=== PATIENT | female | born 1950 | race African-American/Black ===

== ENCOUNTER → 2016-09-08 | Outpatient (CLI) | payer MEDICARE | LOC: OD 07:45 | PROVIDERS: ATTEND Physician Assistant Medical | DX: I50.9 Heart failure, unspecified (principal); R06.02 Shortness of breath | CPT/HCPCS: 71020 ==

== ENCOUNTER → 2016-09-19 | Outpatient (CLI) | payer MEDICARE ==
--- NOTE | 2016-09-19 14:08 | RADIOLOGY REPORT (SQ) ---
EXAM DESCRIPTION: CHEST PA/LATERAL COMPLETED DATE/TIME: 09/19/2016 1:44 pm REASON FOR STUDY: HEART FAILURE, UNSPECIFIED COMPARISON: 09/08/2016 EXAM PARAMETERS: NUMBER OF VIEWS: two views TECHNIQUE: Digital Frontal and Lateral radiographic views of the chest acquired. RADIATION DOSE: NA LIMITATIONS: none FINDINGS: LUNGS AND PLEURA: Chronic interstitial changes are suggested, right more than left. There appears to be some scarring in the right upper lobe. Pole localized infiltrate is present. There i s mild apical pleural thickening. MEDIASTINUM AND HILAR STRUCTURES: No masses or contour abnormalities. HEART AND VASCULAR STRUCTURES: Cardiomegaly with no evidence of failure. BONES: No acute findings. HARDWARE: None in the chest. OTHER: No other significant finding. IMPRESSION: Cardiomegaly with chronic lung changes. TECHNICAL DOCUMENTATION: JOB ID: [id number] [employer]- All Rights Reserved
== END ==
LOC: OD 13:30
PROVIDERS: ATTEND Physician Assistant Medical
DX: I50.9 Heart failure, unspecified (principal)
CPT/HCPCS: 71020

== ENCOUNTER 2017-01-09 05:19 | Day surgery (SDC) | payer MEDICARE ==
[2017-01-02 10:24] LABS: HEMATOCRIT 30.7 % (36.0-47.0); HEMOGLOBIN 10.2 g/dL (12.0-15.5); HGB HCT DIFFERENCE -0.1; MEAN CORPUSCULAR HGB CONC 33.3 g/dL (32.0-36.0); MEAN CORPUSCULAR VOLUME 90 fl (80-97); RED BLOOD COUNT 3.41 10^6/uL (3.72-5.28); RED CELL DISTRIBUTION WIDTH 14.8 % (11.5-14.0); WHITE BLOOD COUNT 3.7 10^3/uL (4.0-10.5)
[2017-01-02 10:53] LABS: ANION GAP 14 (5-19); BLOOD UREA NITROGEN 78 mg/dL (7-20); CALCIUM 9.5 mg/dL (8.4-10.2); CARBON DIOXIDE 20 mmol/L (22-30); CHLORIDE 109 mmol/L (98-107); CREATININE RESULT 4.43 mg/dL (0.52-1.25); GLUCOSE 91 mg/dL (75-110); POTASSIUM 4.1 mmol/L (3.6-5.0); SODIUM 143.4 mmol/L (137-145)
--- NOTE | 2017-01-02 12:54 | EKG REPORT ---
SEVERITY:- DEFECTIVE ECG - SINUS BRADYCARDIA FIRST DEGREE AV BLOCK NONSPECIFIC INTRAVENTRICULAR CONDUCTION DELAY : Confirmed by: Rohit Meza MD 02-Jan-2017 12:54:24
[~2017-01-09 05:19] MED LIST: LACTATED RINGERS 1000 ML IV PRN; LIDOCAINE 0.5% INJ-PF (5 MG/ML) 50 ML SDV SUBCUT PRN
[2017-01-09] MEDS ORDERED: CEFAZOLIN 1 GM/D5W RTU 1 GM/50 ML RTUPB IV ONE (05:20)
[2017-01-09] MEDS ORDERED: NITROGLYCERIN/D5W 50 MG/250 ML RTUINJ IV ONE (06:31)
[2017-01-09] MEDS ORDERED: KETAMINE HCL INJ 500 MG/10 ML VIAL ONE (06:34)
[2017-01-09] MEDS ORDERED: FENTANYL CITRATE INJ/PF 100 MCG/2 ML AMPUL ONE (06:35)
[2017-01-09] MEDS ORDERED: EPHEDRINE SULFATE INJ 50 MG/1 ML AMPULE ONE (06:35)
[2017-01-09] MEDS ORDERED: MIDAZOLAM 2 MG/2 ML INJ ONE (06:35)
[2017-01-09] MEDS ORDERED: PROPOFOL INJ 200 MG/20 ML VIAL IV ONE (06:36)
[2017-01-09] MEDS ORDERED: DEXMEDETOMIDINE INJ 80 MCG/20 ML VIAL IV ONE (06:36)
[2017-01-09] MEDS ORDERED: LIDOCAINE 1% INJ-PF (10 MG/ML) 30 ML SDV ONE (06:48)
[2017-01-09] MEDS ORDERED: BUPIVACAINE HCL 0.25 % INJ/PF (2.5 MG/1 ML) 30 ML VIAL ONE (06:48)
[2017-01-09] MEDS ORDERED: HEPARIN SOD (PORCINE) 1,000 UNIT/ML 10 ML VIAL ONE (06:48)
[2017-01-09] MEDS ORDERED: LIDOCAINE 0.5% INJ-PF (5 MG/ML) 50 ML SDV ONE (06:49)
[2017-01-09] MEDS ORDERED: BACITRACIN INJ 50,000 UNIT VIAL ONE (06:49)
--- NOTE | 2017-01-09 07:03 | EKG REPORT ---
SEVERITY:- ABNORMAL ECG - SINUS RHYTHM FIRST DEGREE AV BLOCK CONSIDER ANTERIOR INFARCT BORDERLINE T ABNORMALITIES, DIFFUSE LEADS : Confirmed by: Estefany Reagan 09-Jan-2017 07:02:55
[2017-01-09] MEDS ORDERED: FENTANYL CITRATE INJ/PF 100 MCG/2 ML AMPUL IV PRN ×3 (08:20)
[2017-01-09] MEDS ORDERED: MEPERIDINE HCL/PF INJ 25 MG/1 ML DISP.SYRIN IV PRN (08:20)
[2017-01-09] MEDS ORDERED: DIPHENHYDRAMINE HCL 50 MG/ML VIAL IV PRN (08:20)
[2017-01-09] MEDS ORDERED: PROMETHAZINE HCL INJ 25 MG/1 ML VIAL IV PRN ×2 (08:20)
[2017-01-09] MEDS ORDERED: MORPHINE SULFATE 10 MG/ML INJ IV PRN (08:20)
[2017-01-09] MEDS ORDERED: OXYCODONE-ACETAMINOPHEN 5-325 MG TABLET PO PRN ×2 (08:20)
--- NOTE | 2017-01-09 09:16 | PDOC DISCHARGE SUMMARY ---
Discharge Summary (SDC) - Discharge Final Diagnosis: #1 chronic kidney disease stage IV 2. History of congestive heart failure 3. History of myocardial infarction. 5. History of stroke. 6. Hypertension. Date of Surgery: 01/09/17 Discharge Date: 01/09/17 Condition: Fair Treatment or Instructions: Discharge home [after recovery per ASU criteria]. Diet , [renal],as tolerated, when fully awake advance as tolerated. Activities within moderation encouraged. Follow up in my office by appointment in about [1 week]. Call for appointment. Leave wounds [covered], [keep clean and dry, until office visit in 1 week]. Hold of on school/work [until evaluation in office]. May shower [in 48 hrs], [try to keep operated area as dry as possible]. Prescriptions: Oxycodone HCl/Acetaminophen [Percocet 5-325 mg Tablet] 1 tab PO ASDIR PRN #15 tab PRN Reason: Referrals: LENKA CARY PA-C [Primary Care Provider] - Discharge Diet: Other (Comments) - Renal Respiratory Treatments at Home: Deep Breathing/Coughing Discharge Activity: Activity As Tolerated Report the Following to Your Physician Immediately: Shortness of Breath, Unusual Bleeding
--- NOTE | 2017-01-09 09:23 | Operative Report ---
Operative Report DATE OF SURGERY: 01/09/17 PREOPERATIVE DIAGNOSIS: #1 chronic kidney disease stage IV. 2. History of congestive heart failure. 3. History of myocardial infarction. 5. History of stroke. 6. Hypertension. POSTOPERATIVE DIAGNOSIS: #1 chronic kidney disease stage IV. 2. History of congestive heart failure. 3. History of myocardial infarction. 5. History of stroke. 6. Hypertension. OPERATION: First stage insertion of transposed basilic vein fistula, left arm. SURGEON: CECY PRITCHARD WIRE STRAIGHTENER: JOANA MANNING ANESTHESIA: LMAC TISSUE REMOVED OR ALTERED: Not applicable COMPLICATIONS: None ESTIMATED BLOOD LOSS: 10 mL INTRAOPERATIVE FINDINGS: Of a basilic vein of adequate caliber, accepting of a 4 mm coronary dilator. In spasm initially. Spasm overcome with intravenous nitroglycerin locally. Satisfactory and white anastomosis done with a good thrill appreciable. Slight whistle appreciated on Doppler. Satisfactory postprocedure Doppler analysis with a slurred multiphasic waveform, on inflow brachial artery, multiphasic and distal brachial artery and a continuous machine murmur no murmur in the vein about 3 cm from the anastomosis. Second stage anticipated in 4-6 weeks. PROCEDURE: Operative Report PROCEDURE: After reviewing the procedure with the patient, [she] was taken to the operating room. The patient was sedated and the [left upper extremity] prepared with chlorhexidine and draped out with sterile linen. After the "" universal timeout", in which it was verified that the patient [received IV antibiotics] the procedure commenced. The sterilely sheathed ultrasound probe was used to evaluate the left upper venous and arterial systems, pertinent to the previously done vein mapping. Local anesthesia was infiltrated and a longitudinal incision made over the lower arm near the antecubital fossa. Dissection proceeded through the subcutaneous tissues down to the basilic vein. The vein was dissected out proximally and distally for about 4 cm. Likewise major branches. A second incision was made medially over the brachial artery. The brachial artery dissected out for a distance of about 1.5 cm. Rubber loops were placed on either end. The patient was given 2500 units of heparin intravenously. Coronary dilators were accepted [up to 4 mm]. The artery was controlled proximally and distally with rubber loops. An arteriotomy approximately [1.5 cm ] in length was made, the artery was irrigated proximally and distally with heparinized solution. The transected vein was now spatulated, using the fishmouth technique, it was then transposed into the lateral incision anastomosed end to end to side into the brachial artery. This was done using a continuous suture of 6-0 Prolene. Controls of the fistula were now released and it was analyzed using a Doppler probe. Hemostasis was secured once optimal function was assured, the wound was irrigated with antibiotic containing solution and closed. The redundant vein was now transposed into the subcutaneous tissue laterally, to facilitate second stage. Closure was done using interrupted 3-0 PDS for the subcutaneous tissues. The skin was closed using a continuous subcutaneous suture of 4-0 Monocryl which was reinforced with Steri-Strips over benzoin. I then left the operative field and returned with a stethoscope covered with a sterile Tegaderm dressing. This allowed external auscultation of the fistula. Auscultation was [satisfactory]. The procedure was concluded by applying a Kerlix dressing over the surgical site. DICTATING PHYSICIAN: CECY BUSTAMANTE M.D.
[2017-01-09] MEDS ORDERED: OXYCODONE-ACETAMINOPHEN 5-325 MG TABLET ONE (10:30)
[2017-01-09 11:24] VITALS: BP 145/70
[2017-01-09] MEDS ORDERED: LIDOCAINE 2% INJ-PF (20 MG/ML) 10 ML AMPUL ONE (13:25)
[2017-01-09] MEDS ORDERED: PHENYLEPHRINE HCL INJ/PF 10 MG/1 ML SDV ONE (13:25)
[2017-01-09] MEDS ORDERED: ONDANSETRON HCL INJ/PF 4 MG/2 ML SDV ONE (13:25)
[2017-01-09] MEDS ORDERED: DEXAMETHASONE SOD PHOSPHATE INJ 4 MG/1 ML VIAL ONE (13:25)
== END 2017-01-09 11:30 | disposition home or self-care (01) ==
LOC: OROUT 05:19
PROVIDERS: ATTEND Surgery
PROC: 05SC0ZZ Reposition Left Basilic Vein, Open Approach (ICD-10-PCS; principal; 2017-01-09 07:30)
DX: I13.2 Hypertensive heart and chronic kidney disease with heart failure and with stage 5 chronic kidney disease, or end stage renal disease (principal); N18.5 Chronic kidney disease, stage 5; I50.9 Heart failure, unspecified; Z86.73 Personal history of transient ischemic attack (TIA), and cerebral infarction without residual deficits; I25.2 Old myocardial infarction; D64.9 Anemia, unspecified; Z87.891 Personal history of nicotine dependence; Z79.899 Other long term (current) drug therapy
CPT/HCPCS: 93005 ×2; 36415 ×2; 84132; 85027; 80048; 93010 ×2; 36819; J2250; J3490 ×7; J0690; J1100; J3010; J1644; A9270; J2370; J2405; J2704; 1844

== ENCOUNTER 2017-02-13 07:21 | Day surgery (SDC) | payer MEDICARE ==
[2017-02-08 11:00] LABS: HEMOGLOBIN 8.6 g/dL (12.0-15.5); HGB HCT DIFFERENCE -0.2; MEAN CORPUSCULAR HGB CONC 33.2 g/dL (32.0-36.0); MEAN CORPUSCULAR VOLUME 90 fl (80-97); RED BLOOD COUNT 2.88 10^6/uL (3.72-5.28); RED CELL DISTRIBUTION WIDTH 13.9 % (11.5-14.0); WHITE BLOOD COUNT 3.2 10^3/uL (4.0-10.5)
[2017-02-08 11:30] LABS: ANION GAP 17 (5-19); BLOOD UREA NITROGEN 88 mg/dL (7-20); CALCIUM 9.3 mg/dL (8.4-10.2); CARBON DIOXIDE 17 mmol/L (22-30); CHLORIDE 112 mmol/L (98-107); CREATININE RESULT 4.73 mg/dL (0.52-1.25); GLUCOSE 91 mg/dL (75-110); POTASSIUM 4.1 mmol/L (3.6-5.0); SODIUM 146.3 mmol/L (137-145)
--- NOTE | 2017-02-08 19:58 | EKG REPORT ---
SEVERITY:- ABNORMAL ECG - SINUS RHYTHM MULTIPLE VENTRICULAR PREMATURE COMPLEXES FIRST DEGREE AV BLOCK BORDERLINE T WAVE ABNORMALITIES : Confirmed by: Rohit Meza MD 08-Feb-2017 19:57:54
[~2017-02-13 07:21] MED LIST changes: +CEFAZOLIN 1 GM/D5W RTU 1 GM/50 ML RTUPB IV PRN; -LACTATED RINGERS 1000 ML IV PRN; +NORMAL SALINE 1000 ML (RENAL PATIENTS) IV PRN
[2017-02-13] MEDS ORDERED: LIDOCAINE 1% INJ-PF (10 MG/ML) 30 ML SDV ONE (07:58)
[2017-02-13] MEDS ORDERED: BUPIVACAINE HCL 0.25 % INJ/PF (2.5 MG/1 ML) 30 ML VIAL ONE ×2 (07:59→13:35)
[2017-02-13] MEDS ORDERED: HEPARIN SOD (PORCINE) 1,000 UNIT/ML 1 ML VIAL ONE (07:59)
[2017-02-13] MEDS ORDERED: LIDOCAINE 0.5% INJ-PF (5 MG/ML) 50 ML SDV ONE ×2 (07:59→13:35)
[2017-02-13] MEDS ORDERED: BACITRACIN INJ 50,000 UNIT VIAL ONE (07:59)
[2017-02-13] MEDS ORDERED: HEPARIN SOD (PORCINE) 1,000 UNIT/ML 10 ML VIAL ONE (08:15)
[2017-02-13] MEDS ORDERED: NITROGLYCERIN/D5W 0 MG/0 ML RTUINJ IV ONE (08:22)
[2017-02-13] MEDS ORDERED: PROPOFOL INJ 200 MG/20 ML VIAL IV ONE (10:59)
[2017-02-13] MEDS ORDERED: FENTANYL CITRATE INJ/PF 100 MCG/2 ML AMPUL ONE (10:59)
[2017-02-13] MEDS ORDERED: MIDAZOLAM 2 MG/2 ML INJ ONE (10:59)
[2017-02-13] MEDS ORDERED: DIPHENHYDRAMINE HCL 50 MG/ML VIAL IV PRN (11:48)
[2017-02-13] MEDS ORDERED: PROMETHAZINE HCL INJ 25 MG/1 ML VIAL IV PRN (11:48)
[2017-02-13] MEDS ORDERED: FENTANYL CITRATE INJ/PF 100 MCG/2 ML AMPUL IV PRN ×3 (11:48)
[2017-02-13] MEDS ORDERED: KETAMINE HCL INJ 500 MG/10 ML VIAL ONE (13:00)
[2017-02-13] MEDS ORDERED: DEXMEDETOMIDINE INJ 80 MCG/20 ML VIAL IV ONE (13:01)
--- NOTE | 2017-02-13 13:43 | PDOC DISCHARGE SUMMARY ---
Discharge Summary (SDC) - Discharge Final Diagnosis: #1 chronic kidney disease stage III. 2. History of stroke. 3. History of myocardial infarction. 4. Anemia. Date of Surgery: 02/13/17 Discharge Date: 02/13/17 Condition: Fair Treatment or Instructions: Discharge home [after recovery per ASU criteria]. Diet , [renal],as tolerated, when fully awake advance as tolerated. Activities within moderation encouraged. Follow up in my office by appointment in about [1 week]. Call for appointment. Leave wounds [covered], [keep clean and dry, until office visit in 1 week]. Empty Dre-Purcell drain as needed. Treating patient and his use. Hold of on school/work [until evaluation in office]. Meds per med rec also Percocet. May shower [in 48 hrs], [try to keep operated area as dry as possible]. Prescriptions: Oxycodone HCl/Acetaminophen [Percocet 5-325 mg Tablet] 1 tab PO ASDIR PRN #15 tab PRN Reason: Referrals: JOHANNY ANGUIANO MD [Primary Care Provider] - Respiratory Treatments at Home: Deep Breathing/Coughing Discharge Activity: Activity As Tolerated Report the Following to Your Physician Immediately: Shortness of Breath, Unusual Bleeding
--- NOTE | 2017-02-13 15:02 | Operative Report ---
Operative Report DATE OF SURGERY: 02/13/17 PREOPERATIVE DIAGNOSIS: 1. Chronic kidney disease history stage III. 2. History of stroke. 3. History of myocardial infarction. 4. Anemia. POSTOPERATIVE DIAGNOSIS: 1. Chronic kidney disease history stage III. 2. History of stroke. 3. History of myocardial infarction. 4. Anemia. OPERATION: Second stage left transposed basilic vein fistula insertion. SURGEON: CECY PRITCHARD SALESFORCE TRAINER: JOANA MANNING ANESTHESIA: LMAC TISSUE REMOVED OR ALTERED: Not applicable. COMPLICATIONS: None ESTIMATED BLOOD LOSS: 50 mL. INTRAOPERATIVE FINDINGS: A robustly developed basilic vein estimated to be over 6 mm in diameter. Nicely transposed into a tunnel. I believe about 15 cm should be available ultimately for use. Good Doppler signal at the end of the procedure. PROCEDURE: Operative Report PROCEDURE: After reviewing the procedure with the patient, she was taken to the operating room. The patient was sedated and the [left upper extremity] prepared with chlorhexidine and draped out with sterile linen. After the "" universal timeout", in which it was verified that the patient [received IV antibiotics] the procedure commenced. The sterilely sheathed ultrasound probe was used to evaluate the size and topographic location of the existing basilic vein fistula. This was transcribed topographical using a marking pen. Local anesthesia was infiltrated and a longitudinal incision started just above the elbow and dissection proceeded down to the fistula. Sequential infiltration of local anesthesia, incision and dissection of the vein proceeded up to the axillary fold. The basilic vein was now dissected away from its branches which were either clipped and/or ligated and divided. In this way the basilic vein was freed up for its entire visible length. Its length was now measured with a dry umbilical tape which was used to transpose a tunnel onto the skin anteriorly and laterally. With this marked in ink, local anesthesia was infiltrated in the skin and subcutaneous tissue of the tunnel. A [place] tunneler was now used to dissect a tunnel in the immediate subcutaneous plane in the area of fistula transposition. Several 3-0 PDS sutures were now placed in the subcutaneous tissues and placed on clamps. These were used for traction laterally. The subcutaneous tissues were now divided down to the tunneler. The tunneler was now removed. The vein was now placed within the tunnel which was reconstituted with interrupted sutures of 3-0 PDS. Great care was taken to avoid compressing the fistula. A 15 [place] [address] drain was now inserted through an inferiorly placed incision after obtaining local anesthesia. The drain was tailored to the lower one third of the wound. It was kept away from the vein, the wound was now closed using interrupted 3-0 PDS in the subcutaneous tissues. The skin was closed with a continuous subcutaneous suture of 4-0 Monocryl. Steri-Strips were applied over benzoin and then Telfa and then a Kerlix wrap. The critical care physician assistant provided retraction, thus facilitating the operative view. Controlled bleeding. The critical care physician assistant also followed the suturing, thus facilitating accurate suture placement. Sutured skin and applied dressings. The procedure was concluded. Copies dictated operative report to Dr. Cecy Negrete MD thank you. DICTATING PHYSICIAN: CECY NEGRETE M.D.
[2017-02-13] MEDS ORDERED: OXYCODONE-ACETAMINOPHEN 5-325 MG TABLET ONE (15:53)
[2017-02-13] MEDS ORDERED: ONDANSETRON HCL INJ/PF 4 MG/2 ML SDV ONE (16:37)
[2017-02-13] MEDS ORDERED: LIDOCAINE 2% INJ-PF (20 MG/ML) 10 ML AMPUL ONE (16:37)
[2017-02-13] MEDS ORDERED: DEXAMETHASONE SOD PHOSPHATE INJ 4 MG/1 ML VIAL ONE (16:37)
[2017-02-13] MEDS ORDERED: OXYCODONE-ACETAMINOPHEN 5-325 MG TABLET PO ONE (17:00)
[2017-02-13 18:51] VITALS: BP 169/70
== END 2017-02-13 17:35 | disposition home or self-care (01) ==
LOC: OROUT 07:21
PROVIDERS: ATTEND Surgery
PROC: 05SC0ZZ Reposition Left Basilic Vein, Open Approach (ICD-10-PCS; principal; 2017-02-13 09:30)
DX: T82.858A Stenosis of other vascular prosthetic devices, implants and grafts, initial encounter (principal); D63.1 Anemia in chronic kidney disease; Y83.2 Surgical operation with anastomosis, bypass or graft as the cause of abnormal reaction of the patient, or of later complication, without mention of misadventure at the time of the procedure; I12.0 Hypertensive chronic kidney disease with stage 5 chronic kidney disease or end stage renal disease; N18.6 End stage renal disease; Z86.79 Personal history of other diseases of the circulatory system; I25.2 Old myocardial infarction; Z86.73 Personal history of transient ischemic attack (TIA), and cerebral infarction without residual deficits; Z87.891 Personal history of nicotine dependence; Z79.899 Other long term (current) drug therapy; Z99.2 Dependence on renal dialysis
CPT/HCPCS: 36821; 93005; 36415 ×2; 84132; 85027; 80048; 93010; J2250; J3490 ×6; J0690; J1100; J3010; J1644; A9270; J2405; J2704; 1844

== ENCOUNTER 2017-04-27 09:08 | Emergency (ER) | payer MEDICARE ==
[2017-04-27] MEDS ORDERED: IPRATROPIUM/ALBUTEROL 0.5-2.5 MG/3 ML AMPUL NEB ONE ×3 (09:23→09:29)
[2017-04-27] MEDS ORDERED: METHYLPREDNISOLONE INJ 125 MG/2 ML SDV ONE (09:24)
[2017-04-27] MEDS ORDERED: METHYLPREDNISOLONE INJ 125 MG/2 ML SDV IV ONE (09:29)
[2017-04-27] MEDS ORDERED: ONDANSETRON HCL INJ/PF 4 MG/2 ML SDV IV ONE (09:29)
[2017-04-27 10:01] LABS: HEMATOCRIT 26.8 % (36.0-47.0); HEMOGLOBIN 8.6 g/dL (12.0-15.5); MEAN CORPUSCULAR HEMOGLOBIN 29.4 pg (27.0-33.4); MEAN CORPUSCULAR HGB CONC 32.1 g/dL (32.0-36.0); MEAN CORPUSCULAR VOLUME 92 fl (80-97); PLATELET COUNT 150 10^3/uL (150-450); RED BLOOD COUNT 2.92 10^6/uL (3.72-5.28); RED CELL DISTRIBUTION WIDTH 15.4 % (11.5-14.0); WHITE BLOOD COUNT 6.4 10^3/uL (4.0-10.5)
[2017-04-27 10:06] LABS: VENOUS BLOOD BASE EXCESS -7.3 mmol/L; VENOUS BLOOD HCO3 20.8 mmol/L (20-32); VENOUS BLOOD PCO2 56.9 mmHg (35-63)
[2017-04-27 10:09] LABS: VENOUS BLOOD PH 7.18 (7.30-7.42)
[2017-04-27 10:14] LABS: INTERNATIONAL RATION (INR) 1.05; PROTHROMBIN TIME 14.4 SEC (11.4-15.4)
--- NOTE | 2017-04-27 10:14 | RADIOLOGY REPORT (SQ) ---
EXAM DESCRIPTION: CHEST SINGLE VIEW COMPLETED DATE/TIME: 04/27/2017 9:45 am REASON FOR STUDY: SOB COMPARISON: Two-view chest 09/19/2016, 09/08/2016 EXAM PARAMETERS: NUMBER OF VIEWS: One view. TECHNIQUE: Single frontal radiographic view of the chest acquired. RADIATION DOSE: NA LIMITATIONS: None. FINDINGS: LUNGS AND PLEURA: Fluid overload or congestive failure, with pulmonary vascular congestion , mild alveolar and interstitial edema. Chronic appearing pleural thickening or pleural calcification at the apices and periphery of the righ t upper lobe. Trace bilateral pleural effusions. No pneumothorax. MEDIASTINUM AND HILAR STRUCTURES: No masses. Contour normal. HEART AND VASCULAR STRUCTURES: Massive cardiomegaly BONES: No acute findings. HARDWARE: None in the chest. OTHER: No other significant finding. IMPRESSION: Fluid overload or congestive failure with alveolar and interstitial edema, and trace barbi ateral pleural effusions. Marked cardiomegaly TECHNICAL DOCUMENTATION: JOB ID: [id number] [employer]- All Rights Reserved
[2017-04-27 10:18] LABS: ABSOLUTE LYMPHOCYTES# (MANUAL) 0.5 10^3/uL (0.5-4.7); ABSOLUTE MONOCYTES # (MANUAL) 0.4 10^3/uL (0.1-1.4); ABSOLUTE NEUTROPHILS# (MANUAL) 5.3 10^3/uL (1.7-8.2); BASOPHILS % (MANUAL) 2 % (0-2); EOSINOPHILS % (MANUAL) 0 % (0-6); LYMPHOCYTES % (MANUAL) 8 % (13-45); MONOCYTES % (MANUAL) 7 % (3-13); SEGMENTED NEUTROPHILS % (MAN) 83 % (42-78); TOTAL CELLS COUNTED 100
[2017-04-27] MEDS ORDERED: FUROSEMIDE INJ/PF 40 MG/4 ML SDV IV ONE ×3 (10:18→14:45)
[2017-04-27 10:19] LABS: OVALOCYTES SLIGHT; PLATELET COMMENT ADEQUATE; POIKILOCYTOSIS SLIGHT
[2017-04-27 10:21] LABS: ALANINE AMINOTRANSFERASE 45 U/L (9-52); ALBUMIN 4.2 g/dL (3.5-5.0); ALKALINE PHOSPHATASE 77 U/L (38-126); ANION GAP 16 (5-19); ASPARTATE AMINO TRANSFERASE 60 U/L (14-36); BILIRUBIN,DIRECT 0.4 mg/dL (0.0-0.4); BILIRUBIN,TOTAL 0.4 mg/dL (0.2-1.3); BLOOD UREA NITROGEN 78 mg/dL (7-20); CARBON DIOXIDE 20 mmol/L (22-30); CHLORIDE 110 mmol/L (98-107); GLUCOSE 108 mg/dL (75-110); POTASSIUM 4.5 mmol/L (3.6-5.0); SODIUM 145.9 mmol/L (137-145); TOTAL PROTEIN 7.6 g/dL (6.3-8.2)
--- NOTE | 2017-04-27 10:26 | ER Document Report ---
ED Respiratory Problem - General Chief Complaint: Nausea/Vomiting/Diarrhea Stated Complaint: COLD,VOMITING,DIARRHEA Time Seen by Provider: 04/27/17 09:28 Mode of Arrival: Wheelchair Information source: Patient, Relative Cannot obtain history due to: Unstable vital signs Notes: Patient is a 66-year-old female who comes in with initial complaint of vomiting diarrhea. However, patient is noted to be in respiratory distress with an oxygen saturation in the 50s-60s. Patient is having a difficult time giving any further history due to her respiratory distress. States she has a history of asthma, states that she has been seen for heart failure with an [place] in the past. Denies any chest pain. TRAVEL OUTSIDE OF THE [place] IN LAST 30 DAYS: No - HPI Patient complains to provider of: Short of breath Associated symptoms: Chills - Related Data Allergies/Adverse Reactions: No Known Allergies Allergy (Verified 02/07/17 09:09) Home Medications: Current Home Medications Calcitriol 1 cap PO DAILY 04/27/17 [History] Colchicine 0.6 mg PO DAILY 04/27/17 [History] Ferrous Sulfate 325 mg PO DAILY 04/27/17 [History] Furosemide 20 mg PO DAILY 04/27/17 [History] Hydralazine HCl 100 mg PO TID 04/27/17 [History] Past Medical History - Social History Smoking Status: Unknown if Ever Smoked Family History: Reviewed & Not Pertinent Patient has suicidal ideation: No Patient has homicidal ideation: No - Past Medical History Cardiac Medical History: Reports: Hx Congestive Heart Failure, Hx Hypertension - ON MEDS Denies: Hx Coronary Artery Disease, Hx Heart Attack Pulmonary Medical History: Reports: Hx Asthma Denies: Hx Bronchitis, Hx COPD, Hx Pneumonia Neurological Medical History: Denies: Hx Cerebrovascular Accident, Hx Seizures Renal/ Medical History: Denies: Hx Peritoneal Dialysis Musculoskeltal Medical History: Denies Hx Arthritis Past Surgical History: Reports: Hx Abdominal Surgery - Immunizations Hx Diphtheria, Pertussis, Tetanus Vaccination: No Review of Systems - Review of Systems -: Yes ROS unobtainable due to patient's medical condition Respiratory: See HPI Gastrointestinal: See HPI -: Yes All other systems reviewed and negative Physical Exam - Vital signs Vitals: Pulse Ox 73 L 04/27/17 09:25 Interpretation: Tachycardic, Hypoxic, Tachypneic - General General appearance: Alert In distress: Severe - HEENT Head: Normocephalic, Atraumatic Pharynx: Normal Neck: Other - JVD - Respiratory Respiratory status: Respiratory distress, Tripod position Breath sounds: Decreased air movement, Rhonchi, Wheezing - Cardiovascular Rhythm: Regular, Tachycardia - Abdominal Inspection: Normal Tenderness: Nontender - Extremities General upper extremity: Normal inspection, Normal strength General lower extremity: Normal inspection, Normal strength - Neurological Cognition: Confused [place] Coma Scale Eye Opening: Spontaneous [place] Coma Scale Verbal: Oriented Speech: Normal - Psychological Associated symptoms: Confused Course - Re-evaluation Re-evalutation: 04/27/17 10:26 Patient is a 66-year-old female who comes in with difficulty breathing and apparently has recently had vomiting diarrhea. Patient had an initial oxygen saturation in the 60s and was confused. She was placed on BiPAP. She is much improved with this and has become awake alert and oriented to time person and place. Patient states that she has been coughing up brown sputum. Unsure if she has had a fever at home but she has felt chilled. Initial blood gas with a pH of 7.18. This is prior to the patient being placed on BiPAP. Patient had initial wheezing which is cleared. Patient does appear to be fluid overloaded. No acute findings on EKG. No chest pain. 04/27/17 11:48 Patient was discussed with her primary doctor who is not seen her in a year and a half. Suggested admitting to hospitalist service. 04/27/17 12:15 Patient discussed with nephrology. Patient did have a fistula placed in January. Her creatinine is a point half higher than it was in January. Potassium is stable at 4.5. Patient's blood pressure has continued to rise. Lasix has been given. Patient there are dialysis beds available but no dialysis nurse until Sunday. Patient would not be able to be emergently dilated if she would need it. Improving with BiPAP. No fever. No evidence for pneumonia. Mostly fluid overload. 04/27/17 12:20 Transfer initiated to [facility]. Discussed with patient. Explained that we would not have dialysis if she was to need it. Based on the vomiting and diarrhea that the patient had yesterday, nephrology here is concerned that she is already decreased in fluids. This could be due to renal insufficiency, heart failure, but there is the potential for possible dialysis need. 04/27/17 13:00 Discussed with thermal spray operator who does not think that the patient will need ICU placement. Will discuss with hospitalist at [facility]. 04/27/17 14:48 Discussed with hospitalist who will discuss with primary school teacher librarian. 04/27/17 15:00 Recommend giving Lasix 120 IV. Patient had received 80 IV as well as 5 of metoprolol. Her urine output has been 100 cc so far. Patient is resting comfortably on BiPAP. Blood pressure is trending down. Again, no evidence for pneumonia. Temperatures been repeated. 04/27/17 15:50 transport is here for patient. She is stable at this time for transfer. 04/27/17 15:53 - Vital Signs Vital signs: Temp Pulse Resp BP Pulse Ox 97.9 F 17 164/72 H 99 04/27/17 10:52 04/27/17 14:31 04/27/17 14:31 04/27/17 14:31 - Laboratory Result Diagrams: 04/27/17 09:40 04/27/17 09:40 Laboratory results interpreted by me: 04/27/17 04/27/17 04/27/17 09:40 09:40 09:40 RBC 2.92 L Hgb 8.6 L Hct 26.8 L RDW 15.4 H Seg Neuts % (Manual) 83 H Lymphocytes % (Manual) 8 L VBG pH 7.18 L* Sodium 145.9 H Chloride 110 H Carbon Dioxide 20 L BUN 78 H Creatinine 6.16 H Est GFR ( Amer) 8 L Est GFR (Non-Af Amer) 7 L AST 60 H NT-Pro-B Natriuret Pep Urine Protein Urine Blood 04/27/17 04/27/17 09:40 13:25 RBC Hgb Hct RDW Seg Neuts % (Manual) Lymphocytes % (Manual) VBG pH Sodium Chloride Carbon Dioxide BUN Creatinine Est GFR ( Amer) Est GFR (Non-Af Amer) AST NT-Pro-B Natriuret Pep 58492 H Urine Protein 100 H Urine Blood SMALL H - Diagnostic Test Radiology reviewed: Image reviewed, Reports reviewed Critical Care Note - Critical Care Note Total time excluding time spent on procedures (mins): 120 - Evaluation and management of respiratory distress, hypoxia, initiation and management of BiPAP , fluid overload, diuresis, consultation with primary care doctor, hospitalist, primary school teacher librarian, transfer center, counseling of patient and family Discharge - Discharge Clinical Impression: Respiratory distress Acute renal failure (ARF) Qualifiers: Acute renal failure type: unspecified Qualified Code(s): N17.9 - Acute kidney failure, unspecified Acute heart failure Qualifiers: Heart failure type: unspecified heart failure type Qualified Code(s): I50.9 - Heart failure, unspecified Condition: Stable Disposition: [facility] Referrals: JOHANNY ANGUIANO MD [Primary Care Provider] - Follow up as needed
[2017-04-27 10:57] LABS: TROPONIN I 0.099 ng/mL
[2017-04-27 12:34] LABS: A TYPE INFLUENZA AG NEGATIVE (NEGATIVE); B INFLUENZA AG NEGATIVE (NEGATIVE)
[2017-04-27] MEDS ORDERED: METOPROLOL TARTRATE PF/INJ 5 MG/5 ML SDV IV ONE (12:41)
[2017-04-27 14:11] LABS: APPEARANCE,URINE CLEAR; BILIRUBIN,URINE NEGATIVE (NEGATIVE); COLOR,URINE STRAW; GLUCOSE, URINE NEGATIVE (NEGATIVE); KETONES,URINE NEGATIVE (NEGATIVE); LEUKOCYTE ESTERASE,URINE NEGATIVE (NEGATIVE); NITRITE,URINE NEGATIVE (NEGATIVE); PROTEIN,URINE 100 mg/dL (NEGATIVE); URINE SPECIFIC GRAVITY 1.009; UROBILINOGEN,URINE NEGATIVE mg/dL (<2.0)
[2017-04-27] MEDS ORDERED: NITROGLYCERIN 2% OINTMENT 1 GM PACKET TP ONE (14:45)
[2017-04-27 15:56] VITALS: BP 169/76
--- NOTE | 2017-04-29 12:50 | EKG REPORT ---
SEVERITY:- OTHERWISE NORMAL ECG - SINUS RHYTHM VENTRICULAR PREMATURE COMPLEX : Confirmed by: Jolie Don MD 29-Apr-2017 12:48:20
== END 2017-04-27 15:55 | disposition short-term general hospital (02) ==
LOC: ER 09:08
DX: N17.9 Acute kidney failure, unspecified (principal); I50.9 Heart failure, unspecified; R06.00 Dyspnea, unspecified; R11.2 Nausea with vomiting, unspecified; R19.7 Diarrhea, unspecified; Z79.899 Other long term (current) drug therapy
CPT/HCPCS: 93005; 96376; 94640; 99291; 99292; 51702; 96374; 96375; 36415; 87040; 87086; 82962; 85025; 85610; 80053; 81001; 84484; 82803; 83605; 87804; 83880; 71010; 93010; 94660; A9270 ×2; J1940; J2930; J3490; J7620

== ENCOUNTER 2017-05-12 16:06 | Emergency (ER) | payer MEDICARE ==
[2017-05-12] MEDS ORDERED: LIDOCAINE 5% (700 MG) TRANSDERMAL ADH..PATCH TP ONE (17:02)
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
--- NOTE | 2017-05-12 17:32 | RADIOLOGY REPORT (SQ) ---
EXAM DESCRIPTION: L SPINE WHOLE COMPLETED DATE/TIME: 05/12/2017 5:17 pm REASON FOR STUDY: low back pain COMPARISON: None. NUMBER OF VIEWS: Five views including obliques. TECHNIQUE: AP, lateral, oblique, and sacral radiographic images acquired of the lumbar spine. LIMITATIONS: None. FINDINGS: MINERALIZATION: Normal. SEGMENTATION: Normal. No transitional anatomy. ALIGNMENT: Normal. VERTEBRAE: Maintained height. No fracture or worrisome bone lesion. DISCS: Multilevel disc space narrowing with osteophytes, most pronounced at L5-S1. POSTERIOR ELEMENTS: Pedicles and facets are intact. No pars defect or posterior arch defects. Facet arthropathy is present. HARDWARE: None in the spine. PARASPINAL SOFT TISSUES: Normal. PELVIS: Intact as visualized. No fractures or worrisome bone lesions. SI joints intact. OTHER: No other significant finding. IMPRESSION: SPONDYLOSIS WITHOUT BONE LESION OR FRACTURE. TECHNICAL DOCUMENTATION: JOB ID: [id number] [employer]- All Rights Reserved
[2017-05-12] MEDS ORDERED: OXYCODONE-ACETAMINOPHEN 5-325 MG TABLET PO ONE (18:06)
[2017-05-12 18:33] VITALS: BP 147/71
== END 2017-05-12 18:34 | disposition home or self-care (01) ==
LOC: ER 16:06
DX: M54.5 Low back pain (principal); I48.91 Unspecified atrial fibrillation; I13.2 Hypertensive heart and chronic kidney disease with heart failure and with stage 5 chronic kidney disease, or end stage renal disease; N18.6 End stage renal disease; I50.9 Heart failure, unspecified; Z99.2 Dependence on renal dialysis
CPT/HCPCS: 99283; 72110; A9270

== ENCOUNTER 2017-08-02 15:47 | Emergency (ER) | payer MEDICARE ==
[2017-08-02 16:02] VITALS: BP 173/57
[2017-08-02] MEDS ORDERED: HYDROCODONE/ACETAMINOPHEN 5-325 MG (6 TAB/ER DISP) PO PRN (16:14)
--- NOTE | 2017-08-02 16:15 | ER Document Report ---
ED General Pain - General Chief Complaint: Low Back Pain Stated Complaint: BACK PAIN Time Seen by Provider: 08/02/17 16:08 Mode of Arrival: Ambulatory Information source: Patient Notes: Patient is a 66-year-old female with chronic back pain and chronic kidney disease on dialysis who presents to the ER today for low back pain in the middle of her back while sitting in the dialysis chair prior to arrival. Patient denies any radiation anywhere, numbness or tingling, loss of bladder or bowel function. TRAVEL OUTSIDE OF THE [place] IN LAST 30 DAYS: No - Related Data Allergies/Adverse Reactions: No Known Allergies Allergy (Verified 08/02/17 15:47) Past Medical History - General Information source: Patient - Social History Smoking Status: Unknown if Ever Smoked Family History: Reviewed & Not Pertinent - Past Medical History Cardiac Medical History: Reports: Hx Atrial Fibrillation, Hx Congestive Heart Failure, Hx Hypertension - ON MEDS Denies: Hx Coronary Artery Disease, Hx Heart Attack Pulmonary Medical History: Reports: Hx Asthma Denies: Hx Bronchitis, Hx COPD, Hx Pneumonia Neurological Medical History: Denies: Hx Cerebrovascular Accident, Hx Seizures Renal/ Medical History: Reports: Hx End Stage Renal Disease, Hx Hemodialysis. Denies: Hx Peritoneal Dialysis Musculoskeltal Medical History: Reports Hx Arthritis Past Surgical History: Reports: Hx Abdominal Surgery - Immunizations Hx Diphtheria, Pertussis, Tetanus Vaccination: No Review of Systems - Review of Systems Constitutional: No symptoms reported EENT: No symptoms reported Cardiovascular: No symptoms reported Respiratory: No symptoms reported Gastrointestinal: No symptoms reported Genitourinary: No symptoms reported Female Genitourinary: No symptoms reported Musculoskeletal: See HPI Skin: No symptoms reported Hematologic/Lymphatic: No symptoms reported Neurological/Psychological: No symptoms reported Physical Exam - Vital signs Vitals: Temp Pulse Resp BP Pulse Ox 98.1 F 63 16 173/57 H 96 08/02/17 16:01 08/02/17 16:01 08/02/17 16:01 08/02/17 16:01 08/02/17 16:01 - Notes Notes: PHYSICAL EXAMINATION: GENERAL: Chronically ill-appearing, but in no acute distress. HEAD: Atraumatic, normocephalic. EYES: Pupils equal round and reactive to light, extraocular movements intact, sclera anicteric, conjunctiva are normal. NECK: Normal range of motion, supple without lymphadenopathy LUNGS: CTAB and equal. No wheezes rales or rhonchi. HEART: Regular rate and rhythm without murmurs ABDOMEN: Soft, no tenderness. No guarding, no rebound BACK: Mild lumbar vertebral tenderness, normal ROM GI/: no CVA tenderness EXTREMITIES: Normal range of motion, no pitting edema. No cyanosis. NEUROLOGICAL: Cranial nerves grossly intact. Normal sensory/motor exams. PSYCH: Normal mood, normal affect. SKIN: Warm, Dry, normal turgor, no rashes or lesions noted Course - Re-evaluation Re-evalutation: 08/02/17 20:18 I do not see a reason for x-ray today as this is a flare of patient's chronic pain, no injury, - Vital Signs Vital signs: Temp Pulse Resp BP Pulse Ox 98.1 F 63 16 173/57 H 96 08/02/17 16:01 08/02/17 16:01 08/02/17 16:01 08/02/17 16:01 08/02/17 16:01 Discharge - Discharge Clinical Impression: Low back pain Qualifiers: Chronicity: acute Back pain laterality: midline Sciatica presence: without sciatica Qualified Code(s): M54.5 - Low back pain Condition: Stable Disposition: HOME, SELF-CARE Additional Instructions: Return immediately for any new or worsening symptoms. Follow up with primary care provider, call tomorrow to make followup appointment. Forms: Return to Work Referrals: JOHANNY ANGUIANO MD [Primary Care Provider] - Follow up as needed
== END 2017-08-02 16:36 | disposition home or self-care (01) ==
LOC: ER 15:47
DX: M54.5 Low back pain (principal); G89.29 Other chronic pain; I12.0 Hypertensive chronic kidney disease with stage 5 chronic kidney disease or end stage renal disease; N18.6 End stage renal disease; Z99.2 Dependence on renal dialysis; J45.909 Unspecified asthma, uncomplicated
CPT/HCPCS: 99283; A9270

== ENCOUNTER 2017-08-07 17:02 | Emergency (ER) | payer MEDICARE ==
[2017-08-07] MEDS ORDERED: FENTANYL CITRATE INJ/PF 100 MCG/2 ML AMPUL IM ONE (18:46)
[2017-08-07] MEDS ORDERED: ONDANSETRON 4 MG TAB.RAPDIS PO ONE (18:48)
--- NOTE | 2017-08-07 18:50 | ER Document Report ---
ED General - General Chief Complaint: High Blood Pressure Stated Complaint: HIGH BLOOD PRESSURE ISSUE, VOMITING, HEADACHE Time Seen by Provider: 08/07/17 18:41 Notes: History of present illness-66 years old female with a history of hypertension, on dialysis, chronic low back pain, presents today with chronic lower back pain with exacerbation. And also elevated blood pressure. She had her dialysis today. No injuries. No constitutional symptoms. She is on back brace with bilateral paraspinal tenderness REVIEW OF SYSTEMS: CONSTITUTIONAL : Denies fever, chills, or sweats. Denies recent illness. EENT: Denies eye, ear, throat, or mouth pain or symptoms. Denies nasal or sinus congestion or discharge. Denies throat, tongue, or mouth swelling or difficulty swallowing. CARDIOVASCULAR: Denies chest pain. Denies palpitations or racing or irregular heart beat. Denies ankle edema. RESPIRATORY: Denies cough, cold, or chest congestion. Denies shortness of breath, difficulty breathing, or wheezing. GASTROINTESTINAL: Denies abdominal pain or distention. Denies nausea, vomiting , or diarrhea. Denies blood in vomitus, stools, or per rectum. Denies black, tarry stools. Denies constipation. GENITOURINARY: Denies difficulty urinating, painful urination, burning, frequency, blood in urine, or discharge. FEMALE GENITOURINARY: Denies vaginal bleeding, heavy or abnormal periods, irregular periods. Denies vaginal discharge or odor. MUSCULOSKELETAL: Denies back or neck pain or stiffness. Denies joint pain or swelling. SKIN: Denies rash, lesions or sores. HEMATOLOGIC : Denies easy bruising or bleeding. LYMPHATIC: Denies swollen, enlarged glands. NEUROLOGICAL: Denies confusion or altered mental status. Denies passing out or loss of consciousness. Denies dizziness or lightheadedness. Denies headache. Denies weakness or paralysis or loss of use of either side. Denies problems with gait or speech. Denies sensory loss, numbness, or tingling. Denies seizures. PSYCHIATRIC: Denies anxiety or stress. Denies depression, suicidal ideation, or homicidal ideation. ALL OTHER SYSTEMS REVIEWED AND NEGATIVE. PHYSICAL EXAMINATION: GENERAL: Well-appearing, well-nourished and in no acute distress. HEAD: Atraumatic, normocephalic. EYES: Pupils equal round and reactive to light, extraocular movements intact, conjunctiva are normal. ENT: Nares patent, oropharynx clear without exudates. Moist mucous membranes. NECK: Normal range of motion, supple without lymphadenopathy LUNGS: Breath sounds clear to auscultation bilaterally and equal. No wheezes rales or rhonchi. HEART: Regular rate and rhythm without murmurs ABDOMEN: Soft, nontender, nondistended abdomen. No guarding, no rebound. No masses appreciated. Female : deferred Musculoskeletal: Bilateral paraspinal muscular tenderness over the paralumbar region. NEUROLOGICAL: Cranial nerves grossly intact. Normal speech, normal gait. Normal sensory, motor exams PSYCH: Normal mood, normal affect. SKIN: Warm, Dry, normal turgor, no rashes or lesions noted. Dictation was performed using [employer] voice recognition software history of present illness TRAVEL OUTSIDE OF THE [place] IN LAST 30 DAYS: No - HPI Onset: Just prior to arrival Onset/Duration: Gradual Quality of pain: Achy Severity: Moderate Pain Level: 3 Associated symptoms: denies: None, Allergy/hay fever, Body/muscle aches, Chest pain, Chills, Nonproductive cough, Productive cough, Diarrhea, Drooling, Earache , Fever, Headache, Hoarseness, Hurts to breath, Leg swelling, Nausea, Vomiting, Rhinnorhea, Sinus pain/drainage, Shortness of breath, Slow to respond, Sore throat, Sweating, Weakness, Other Exacerbated by: denies: Denies, Supine, Sitting, Standing, Movement, Walking, Coughing, Deep breathing, Food, Other Relieved by: denies: Denies, Supine, Sitting, Standing, Remaining still, Antacids, Food, Other - Related Data Allergies/Adverse Reactions: No Known Allergies Allergy (Verified 08/07/17 18:45) Past Medical History - Social History Smoking Status: Former Smoker Cigarette use (# per day): No Chew tobacco use (# tins/day): No Frequency of alcohol use: None Drug Abuse: None Family History: Reviewed & Not Pertinent Patient has suicidal ideation: No Patient has homicidal ideation: No - Past Medical History Cardiac Medical History: Reports: Hx Atrial Fibrillation, Hx Congestive Heart Failure, Hx Hypertension - ON MEDS Denies: Hx Coronary Artery Disease, Hx Heart Attack Pulmonary Medical History: Reports: Hx Asthma Denies: Hx Bronchitis, Hx COPD, Hx Pneumonia Neurological Medical History: Denies: Hx Cerebrovascular Accident, Hx Seizures Renal/ Medical History: Reports: Hx End Stage Renal Disease, Hx Hemodialysis. Denies: Hx Peritoneal Dialysis Musculoskeltal Medical History: Reports Hx Arthritis Past Surgical History: Reports: Hx Abdominal Surgery - Immunizations Hx Diphtheria, Pertussis, Tetanus Vaccination: No Review of Systems - Review of Systems Notes: As per history of complain Physical Exam - Vital signs Vitals: Temp Pulse Resp BP Pulse Ox 97.9 F 64 16 192/73 H 96 08/07/17 17:33 08/07/17 17:33 08/07/17 17:33 08/07/17 17:33 08/07/17 17:33 Course - Re-evaluation Re-evalutation: 08/07/17 20:30 Patient's blood pressure has come down pain improved subsequently discharged home. - Vital Signs Vital signs: Temp Pulse Resp BP Pulse Ox 97.9 F 64 16 164/73 H 95 08/07/17 17:33 08/07/17 17:33 08/07/17 20:01 08/07/17 20:01 08/07/17 20:01 Discharge - Discharge Clinical Impression: Chronic kidney disease (CKD) stage G3b/A3, moderately decreased glomerular filtration rate (GFR) between 30-44 mL/min/1.73 square meter and albuminuria creatinine ratio greater than 300 mg/g Hypertension Qualifiers: Hypertension type: essential hypertension Qualified Code(s): I10 - Essential ( primary) hypertension Low back pain Qualifiers: Chronicity: acute Back pain laterality: midline Sciatica presence: without sciatica Qualified Code(s): M54.5 - Low back pain Disposition: HOME, SELF-CARE Instructions: High Blood Pressure, Requiring Treatment ([facility]) Referrals: JOHANNY ANGUIANO MD [Primary Care Provider] - Follow up as needed
[2017-08-07 20:48] VITALS: BP 158/68
--- NOTE | 2017-08-08 07:35 | EKG REPORT ---
SEVERITY:- ABNORMAL ECG - SINUS RHYTHM FIRST DEGREE AV BLOCK NONSPECIFIC INTRAVENTRICULAR CONDUCTION DELAY LEFT VENTRICULAR HYPERTROPHY : Confirmed by: Rohit Meza MD 08-Aug-2017 07:34:32
== END 2017-08-07 20:58 | disposition home or self-care (01) ==
LOC: ER 17:02
DX: I12.0 Hypertensive chronic kidney disease with stage 5 chronic kidney disease or end stage renal disease (principal); N18.6 End stage renal disease; G89.29 Other chronic pain; M54.5 Low back pain; I48.91 Unspecified atrial fibrillation; Z99.2 Dependence on renal dialysis; Z87.891 Personal history of nicotine dependence
CPT/HCPCS: 93005; 99284; 96372; 93010; A9270; J3010; S0119

== ENCOUNTER → 2017-09-10 | Outpatient (CLI) | payer MEDICARE ==
--- NOTE | 2017-09-10 16:23 | WOMENS IMAGING REPORT ---
EXAM DESCRIPTION: BILAT SCREENING MAMMO W/CAD COMPLETED DATE/TIME: 09/10/2017 3:57 pm REASON FOR STUDY: SCREENING MAMMO Z12.31 ENCNTR SCREEN MAMMOGRAM FOR MALIGNANT NEOPLASM OF RAYMUNDO COMPARISON: None. TECHNIQUE: Standard craniocaudal and mediolateral oblique views of each breast recorded using digita l acquisition. LIMITATIONS: None. FINDINGS: No masses, calcifications or architectural distortion. No areas of suspicion. Read with the assistance of CAD. .[facility] - R2 Cenova Version 1.3 .[facility] - R2 Cenova Version 1.[address] .[facility] - R2 Cenova Version 2.4 .[facility] - R2 Cenova Version 2.4 .[facility] - R2 C.O.D. Biller Version 9.2 IMPRESSION: NORMAL MAMMOGRAM. BIRADS 1. BREAST DENSITY: b. There are scattered areas of fibroglandular density. BIRAD: 1 NEGATIVE RECOMMENDATION: ROUTINE SCREENING COMMENT: The patient has been notified of the results by letter per MQSA requirements. Additional no tification policies are in place for contacting patient with suspicious or incomplete findings. Quality ID #[id number]: The [employer] recommends an annual screening mammogram for women aged 40 years or over. This facility utilizes a reminder system to ensure that all patients receive reminder letters, and/or direct phone calls for appointments. This includes reminders for routine scr eening mammograms, diagnostic mammograms, or other Breast Imaging Interventions when appropriate. Th is patient will be placed in the appropriate reminder system. The [employer] (ACR) has developed recommendations for screening MRI of the breast s in certain patient populations, to be used in conjunction with mammography. Breast MRI surveillanc e may be appropriate for women with more than 20% lifetime risk of developing breast cancer as deter mined by genetic testing, significant family history of the disease, or history of mantle radiation f or Hodgkins Disease. ACR Practice Guidelines 2008. TECHNICAL DOCUMENTATION: FINDING NUMBER: (1) ASSESSMENT: (1) JOB ID: [id number] [employer]- All Rights Reserved Reading location - IP/workstation name: [email or web address]
== END ==
LOC: WI 13:30
PROVIDERS: ATTEND Internal Medicine Nephrology
DX: Z12.31 Encounter for screening mammogram for malignant neoplasm of breast (principal)
CPT/HCPCS: 77067

== ENCOUNTER → 2017-09-12 | Outpatient (CLI) | payer MEDICARE ==
--- NOTE | 2017-09-12 16:17 | RADIOLOGY REPORT (SQ) ---
EXAM DESCRIPTION: CT ABD/PELVIS NO ORAL OR IV COMPLETED DATE/TIME: 09/12/2017 1:55 pm REASON FOR STUDY: ABN FINDINGS ON DX IMAGING OF ABD REGIONS, INC RETROPERITON (R93.5) R93.5 ABN FIN DINGS ON DX IMAGING OF ABD REGIONS, INC RETROPE Z01.810 ENCOUNTER FOR PREPROCEDURAL CARDIOVASCULAR E XAMINATI COMPARISON: CT abdomen pelvis 02/23/2016 Abdominal ultrasound 06/08/2015 TECHNIQUE: CT scan of the abdomen and pelvis performed without intravenous or oral contrast. Images reviewed with lung, soft tissue, and bone windows. Reconstructed coronal and sagittal MPR images revi ewed. All images stored on PACS. All CT scanners at this facility use dose modulation, iterative reconstruction, and/or weight based d osing when appropriate to reduce radiation dose to as low as reasonably achievable (ALARA). [facility]: Dose Right [facility]: CareDose [facility]: Dose Right [facility]: Teradose 4D [facility]: [employer] RADIATION DOSE: CT Rad equipment meets quality standard of care and radiation dose reduction techniq ues were employed. CTDIvol: 5.3 mGy. DLP: 242 mGy-cm.mGy. LIMITATIONS: None. FINDINGS: LOWER CHEST: Marked cardiomegaly unchanged. Lung bases are clear. No pleural effusions. Pleural calcifications are present over the left lower pleural space. NON-CONTRASTED LIVER, SPLEEN, ADRENALS: Liver, spleen are unremarkable. Calcifications right adrenal gland, possibly from remote prior hemorrhage. Left adrenal gland unremarkable PANCREAS: No masses. No peripancreatic inflammatory changes. GALLBLADDER: No identified stones by CT criteria. No inflammatory changes to suggest cholecystitis. RIGHT KIDNEY AND URETER: No suspicious masses. Assessment limited by lack of IV contrast. No collec ting system calcifications. No hydronephrosis or hydroureter. Right kidney is about 6.5 cm in santo th. LEFT KIDNEY AND URETER: A 1.5 cm intermediate density hemorrhagic cyst versus solid nodule is present along the lateral aspect left lower pole kidney. This measures 30 Hounsfield units. Ultrasound rec ommended for follow-up. 1 cm simple cyst anterior left mid pole kidney. No collecting system calci fications. No hydronephrosis or hydroureter. AORTA AND RETROPERITONEUM: No aneurysm. No retroperitoneal masses or adenopathy. Heavily calcified l eft proximal renal artery and origin of the superior mesenteric artery BOWEL AND PERITONEAL CAVITY: No obvious masses or inflammatory changes. No free fluid. APPENDIX: Normal. PELVIS, BLADDER, AND ABDOMINAL WALL:No abnormal masses. No free fluid. Bladder normal. BONES: No significant findings. OTHER: No other significant finding. IMPRESSION: 1.5 cm intermediate density hemorrhagic cyst versus nodule left lower pole kidney for wh ich bilateral renal ultrasound is recommended for followup COMMENT: Quality ID # [id number]: Final reports with documentation of one or more dose reduction techniques (e.g., Automated exposure control, adjustment of the mA and/or kV according to patient size, use of iterative reconstruction technique) TECHNICAL DOCUMENTATION: JOB ID: [id number] [employer]- All Rights Reserved Reading location - IP/workstation name: [email or web address]
--- NOTE | 2017-09-12 18:57 | XCELERA REPORT ---
[address] [address] Transthoracic Echocardiogram Report Name: CARRIE GARZA Age: 66 yrs Gender: Female : 1950 Patient Status: Outpatient Patient Location: [facility] Study Date: 09/12/2017 02:15 PM Height: 62 in Weight: 152 lb BSA: 1.7 m2 Procedure: A complete two-dimensional transthoracic echocardiogram was performed (2D, M-mode, spectral and color flow Doppler). The study was technically adequate with some images being suboptimal in quality. Reason For Study: PRE OP Ordering Physician: Nadia MARSHALL Performed By: Cirilo Bowman Interpretation Summary The left ventricular ejection fraction is normal. There is mild concentric left ventricular hypertrophy. Doppler measurements suggest pseudonormalized left ventricular relaxation, which is associated with grade II/IV or mild to moderate diastolic dysfunction The left ventricle is grossly normal size. Wall motion cannot be accurately commented on, but no definite regional wall motion abnormalities noted. The right ventricular systolic function is normal. Borderline left atrial enlargement. The right atrium is normal in size There is a mild to moderate amount of mitral regurgitation There is no mitral valve stenosis. There is a mild to moderate amount of aortic regurgitation There is no aortic valve stenosis There is a trace or physiologic amount of tricuspid regurgitation Tricuspid regurgitation jet envelope not well defined to measure RV systolic pressure accurately. The aortic root is not well visualized but is probably normal size. The inferior vena cava appeared normal and decreased > 50% with respiration (RAP 5-10 mmHg) There is no pericardial effusion. MMode/2D Measurements & Calculations RVDd: 2.5 cm LVIDd: 4.8 cm FS: 34.0 % Ao root diam: IVSd: 1.1 cm LVIDs: 3.1 cm EDV(Teich): 2.7 cm LVPWd: 1.1 cm 105.3 ml Ao root area: ESV(Teich): 39.1 ml 5.8 cm2 EF(Teich): LA dimension: 62.9 % 2.8 cm LVOT diam: 1.8 cm LA A2Cs: LA A4Cs: LA length: 7.2 cm LVOT area: 2.6 cm2 30.5 cm2 35.9 cm2 LA Vol Index (BP): LA Volume: 129.6 ml 76.2 ml/m2 Doppler Measurements & Calculations MV E max hillary: MV P1/2t max hillary: Ao V2 max: AI max hillary: 99.5 cm/sec 98.9 cm/sec 216.5 cm/sec 311.8 cm/sec MV A max hillary: MV P1/2t: 92.1 msec Ao max PG: AI max P.5 cm/sec MVA(P1/2t): 2.4 cm2 18.8 mmHg 39.7 mmHg MV E/A: 1.4 MV dec slope: GEORGE(V,D): 1.5 cm2 AI dec slope: 116.7 cm/sec2 314.6 cm/sec2 AI P1/2t: MV dec time: 782.3 msec 0.24 sec LV V1 max PG: PA V2 max: TR max hillary: 6.1 mmHg 106.1 cm/sec 238.9 cm/sec LV V1 max: PA max P.5 mmHg TR max P.0 cm/sec 22.8 mmHg Left Ventricle The left ventricle is grossly normal size. There is mild concentric left ventricular hypertrophy. The left ventricular ejection fraction is normal. Doppler measurements suggest pseudonormalized left ventricular relaxation, which is associated with grade II/IV or mild to moderate diastolic dysfunction. Wall motion cannot be accurately commented on, but no definite regional wall motion abnormalities noted. Right Ventricle The right ventricle is grossly normal size. There is normal right ventricular wall thickness. The right ventricular systolic function is normal. Atria The right atrium is normal in size. Borderline left atrial enlargement. Interarterial septum not well visualized and not well dopplered. Cannot comment on ASD/PFO presence. Mitral Valve The mitral valve leaflets are sclerotic, but show no functional abnormalities. There is no mitral valve stenosis. There is a mild to moderate amount of mitral regurgitation. Aortic Valve The aortic valve is grossly normal. There is no aortic valve stenosis. There is a mild to moderate amount of aortic regurgitation. Tricuspid Valve The tricuspid valve is not well visualized, but is grossly normal. There is no tricuspid stenosis. There is a trace or physiologic amount of tricuspid regurgitation. Tricuspid regurgitation jet envelope not well defined to measure RV systolic pressure accurately. Pulmonic Valve The pulmonic valve is not well visualized. Great Vessels The aortic root is not well visualized but is probably normal size. The inferior vena cava appeared normal and decreased > 50% with respiration (RAP 5-10 mmHg). Effusions There is no pericardial effusion. : Nadia MARSHALL > Estefany Reagan
== END ==
LOC: RAD 13:10
PROVIDERS: ATTEND Internal Medicine Nephrology
DX: Z01.810 Encounter for preprocedural cardiovascular examination (principal); R93.5 Abnormal findings on diagnostic imaging of other abdominal regions, including retroperitoneum; Z76.82 Awaiting organ transplant status
CPT/HCPCS: 74176; 93306

== ENCOUNTER → 2017-10-09 | Outpatient (CLI) | payer MEDICARE ==
--- NOTE | 2017-10-09 11:21 | RADIOLOGY REPORT (SQ) ---
EXAM DESCRIPTION: U/S RETROPERITON (RENAL/AORTA) COMPLETED DATE/TIME: 10/09/2017 9:30 am REASON FOR STUDY: OTHER SPECIFIED DISORDERS OF KIDNEY AND URETER (N28.89) N28.89 OTHER SPECIFIED DI SORDERS OF KIDNEY AND URETER COMPARISON: CT abdomen pelvis 09/12/2017, 02/23/2016 Abdominal ultrasound 06/08/2015 TECHNIQUE: Dynamic and static grayscale images acquired of the kidneys and bladder and recorded on P ACS. Additional selected color Doppler and spectral images recorded. LIMITATIONS: None. FINDINGS: RIGHT KIDNEY: Small, 6.5 cm in length. Diffuse increased cortical echogenicity and diffus e cortical thinning is present. No cysts, stones, masses, or hydronephrosis. LEFT KIDNEY: Small, 7.9 cm in length. Diffuse increased cortical echogenicity and diffuse cortical thinning is present. Benign 1.5 cm cyst left lower pole kidney correlates with findings mentioned on CT exam 09/12/2017. No stones, masses, or hydronephrosis. BLADDER: Decompressed, not well seen OTHER FINDINGS: No other significant finding. IMPRESSION: Small echogenic kidneys bilaterally. No hydronephrosis. 1.5 cm cyst left lower pole kidney. TECHNICAL DOCUMENTATION: JOB ID: [id number] [employer]- All Rights Reserved Reading location - IP/workstation name: [email or web address]
== END ==
LOC: RAD 08:38
PROVIDERS: ATTEND Internal Medicine Nephrology
DX: N28.89 Other specified disorders of kidney and ureter (principal); N27.1 Small kidney, bilateral; N28.1 Cyst of kidney, acquired
CPT/HCPCS: 76770

== ENCOUNTER 2018-02-18 07:42 | Day surgery (SDC) | payer MEDICARE, BC ==
[~2018-02-18 07:42] MED LIST changes: -CEFAZOLIN 1 GM/D5W RTU 1 GM/50 ML RTUPB IV PRN; +DIAZEPAM 5 MG TABLET PO PRN; -LIDOCAINE 0.5% INJ-PF (5 MG/ML) 50 ML SDV SUBCUT PRN; -NORMAL SALINE 1000 ML (RENAL PATIENTS) IV PRN
[2018-02-18 09:03] LABS: HEMOGLOBIN 10.8 g/dL (12.0-15.5); MEAN CORPUSCULAR HEMOGLOBIN 32.5 pg (27.0-33.4); MEAN CORPUSCULAR HGB CONC 33.8 g/dL (32.0-36.0); MEAN CORPUSCULAR VOLUME 96 fl (80-97); PLATELET COUNT 215 10^3/uL (150-450); RED BLOOD COUNT 3.33 10^6/uL (3.72-5.28); RED CELL DISTRIBUTION WIDTH 13.7 % (11.5-14.0)
[2018-02-18 09:31] LABS: ANION GAP 13 (5-19); BLOOD UREA NITROGEN 62 mg/dL (7-20); CARBON DIOXIDE 28 mmol/L (22-30); CHLORIDE 98 mmol/L (98-107); GLUCOSE 99 mg/dL (75-110); POTASSIUM 4.3 mmol/L (3.6-5.0); SODIUM 138.8 mmol/L (137-145)
[2018-02-18] MEDS ORDERED: LIDOCAINE 0.5% INJ-PF (5 MG/ML) 50 ML SDV ONE (09:35)
[2018-02-18] MEDS ORDERED: FENTANYL CITRATE INJ/PF 100 MCG/2 ML AMPUL ONE (09:43)
[2018-02-18] MEDS ORDERED: HEPARIN SOD (PORCINE) 5,000 UNIT/ML 1 ML SYRINGE ONE (09:43)
[2018-02-18] MEDS ORDERED: MIDAZOLAM 2 MG/2 ML INJ ONE (09:43)
--- NOTE | 2018-02-18 11:31 | PDOC H&P ---
General Chief Complaint: The patient has been referred across for angiogram and possible angioplasty. Decreased flows have been noted at dialysis. - Diagnosis (1) Dialysis AV fistula malfunction Is this a Current Diagnosis?: Yes (2) End-stage renal disease on hemodialysis Is this a Current Diagnosis?: Yes (3) History of myocardial infarction Is this a Current Diagnosis?: Yes (4) History of stroke Is this a Current Diagnosis?: Yes (5) Hypertension Is this a Current Diagnosis?: Yes - Current Medications/Allergies Home Medications: Aspirin [Aspirin 325 mg Tablet] 1 tab PO DAILY 08/07/17 Clonidine HCl 1 tab PO BID 08/07/17 Furosemide [Lasix 20 mg Tablet] 1 tab PO DAILY 08/07/17 Hydralazine HCl 1 tab PO TID 08/07/17 Lisinopril 1 tab PO DAILY 08/07/17 Metoprolol Tartrate 1 tab PO BID 08/07/17 Multivitamin/Ferrous Sulfate [One-Daily Pnfdn-Wan-Ihuu Tab] 18 mg PO DAILY 02/18 Allergies/Adverse Reactions: No Known Allergies Allergy (Verified 08/07/17 18:45) Past Medical History Cardiac Medical History: Reports: Atrial Fibrillation, Congestive Heart Failure , Coronary Artery Disease, Myocardial Infarction, Hypertension - ON MEDS Pulmonary Medical History: Reports: Asthma, Pneumonia, Tuberculosis Denies: Bronchitis, Chronic Obstructive Pulmonary Disease (COPD) Neurological Medical History: Denies: Seizures Renal/ Medical History: Reports: End Stage Renal Disease Musculoskeltal Medical History: Reports: Arthritis Hematology: Reports: Anemia Family History Family History: Reviewed & Not Pertinent Parental Family History Reviewed: No Children Family History Reviewed: No Sibling(s) Family History Reviewed.: No Social History Smoking Status: Former Smoker Physical Exam Vital Signs: Temp Pulse Resp BP Pulse Ox 97.7 F 53 L 18 179/89 H 100 02/18/18 08:32 02/18/18 08:32 02/18/18 08:32 02/18/18 08:32 02/18/18 08:32 Intake & Output 02/17/18 02/18/18 02/19/18 06:59 06:59 06:59 Weight 69.4 kg Additional comments: Constitutional: Well-developed well-nourished -[place] lady. No apparent acute distress. Eyes: Mucous membranes pink and moist, pupils equal and reactive to light. Conjunctiva normal. Arcus senilis noted. ENT: Hearing grossly normal. External pinna normal to inspection. Teeth intact. Tongue normal to inspection. Cardiac: Heart sounds 1 and 2 normal. Respiratory breath sounds are present bilaterally, normal. Normal respiratory effort. Psychiatric: Judgment, memory, insight seem normal. Mood is pleasant and appropriate. Extremities: Upper extremities show normal range of movement. Pulses present noted to the radial arteries. Capillary refill normal. No cyanosis noted. No muscle wasting noted. Left-sided transposed brachial vein fistula noted. Somewhat soft, suggesting inflow stenosis.
--- NOTE | 2018-02-18 11:33 | Discharge Summary ---
Discharge Summary (SDC) - Discharge Final Diagnosis: #1 malfunctioning AV fistula, left transposed brachial vein. 2. End-stage renal disease on hemodialysis. 3. History of stroke. 4. History of myocardial infarction. 5. Hypertension. Date of Surgery: 02/18/18 Discharge Date: 02/18/18 Condition: Good Treatment or Instructions: Discharge home [after recovery per ASU criteria]. Diet , [renal],as tolerated, when fully awake advance as tolerated. Activities within moderation encouraged. Follow up in my office by appointment in about 1 month]. Call for appointment. Leave wounds [covered], [keep clean and dry, until hemodialysis. Meds per med rec. May shower [in 48 hrs], [try to keep operated area as dry as possible]. Referrals: JOHANNY ANGUIANO MD [Primary Care Provider] - Discharge Diet: Other (Comments) - Renal. Respiratory Treatments at Home: Deep Breathing/Coughing Discharge Activity: Activity As Tolerated Report the Following to Your Physician Immediately: Shortness of Breath, Unusual Bleeding
--- NOTE | 2018-02-18 11:52 | Operative Report ---
Operative Report DATE OF SURGERY: 02/18/18 PREOPERATIVE DIAGNOSIS: 1. Malfunctioning AV fistula, left arm transposed brachial vein. 2. End-stage renal disease on hemodialysis. 3. History of myocardial infarction. 4. History of stroke. 5. Hypertension. POSTOPERATIVE DIAGNOSIS: 1. Malfunctioning AV fistula, left arm transposed brachial vein. 2. End-stage renal disease on hemodialysis. 3. History of myocardial infarction. 4. History of stroke. 5. Hypertension. OPERATION: 1. Needle access into the fistula. 2. Angioplasty. 3. Angiogram and interpretation. SURGEON: CECY PRITCHARD TIMBER SKIDDER: None. ANESTHESIA: Moderate Sedation TISSUE REMOVED OR ALTERED: Not applicable. COMPLICATIONS: None. ESTIMATED BLOOD LOSS: 5 mL. INTRAOPERATIVE FINDINGS: Of a well founded left arm transposed brachial vein fistula. Somewhat softer than would be predicted. Angiogram confirmed the presence of stenosis in the first 4 cm of the fistula. The brachial artery is actually robust and nicely dilated. The first 4 cm estimated to be about 70-80 % of the adjacent lumen. This was corrected by angioplasty. Correction was treated by improved pulsation in the fistula. PROCEDURE: PROCEDURE: After verifying the procedure and having obtained informed consent, the patient's left arm and forearm were prepared with Chlorhexidine and draped out with sterile linen. Local anesthesia infiltrated. Percutaneous access into the fistula ,[retrograde], obtained about [20 cm] from the arteriovenous anastomosis using a micro puncture needle followed by micro puncture wire and then a micro puncture catheter.. A 0.035 [place] wire was inserted, and over this, a 5 Maltese short introducer was placed, this was followed by a Kumpe catheter. The Kumpe catheter was used to do an angiogram starting in the below elbow brachial artery. Angioplasty was elected. A 5 mm angioplasty balloon was inserted. Angioplasty was now done at the culprit area in the proximal 4 cm t and perianastomotic segment. This was done very carefully using a 3 mils syringe, sustained for 2 minutes. This was repeated slightly cephalad in order to completely cover the affected area. Angiogram demonstrated successful outcome. Completion angiogram demonstrated [satisfactory result]. The instrumentation was now withdrawn over hand had pressure for 10 minutes. Dressings applied. Procedure concluded. Exposure time: 0.6 minutes Radiation: 3.99 mGy. Contrast: 25 mL of Isovue-M 300 low osmolality. DICTATING PHYSICIAN: CECY BUSTAMANTE M.D. cc: CECY BUSTAMANTE M.D. ([id number]) >>
--- NOTE | 2018-02-18 13:06 | RADIOLOGY REPORT (SQ) ---
EXAM DESCRIPTION: FISTULAGRAM W/PLASTY COMPLETED DATE/TIME: 02/18/2018 10:52 am REASON FOR STUDY: T82.858A T82.858A STENOSIS OF OTHER VASCULAR PROSTH DEV/GRFT, INIT COMPARISON: None. FLUOROSCOPY TIME: 0.6 minutes its 43 images saved to PACS. TECHNIQUE: Intra-operative images acquired during surgical procedure to evaluate progress. NUMBER OF IMAGES: 43 LIMITATIONS: None. FINDINGS: Selected images from arteriography and angioplasty upper extremity dialysis graft performe d by Dr. Negrete. IMPRESSION: IMAGE(S) OBTAINED DURING PROCEDURE. COMMENT: Quality ID [id number]: Final reports for procedures using fluoroscopy that document radiation exp osure indices, or exposure time and number of fluorographic images (if radiation exposure indices are not available) Please consult full operative report of the attending physician for description of the procedure. TECHNICAL DOCUMENTATION: JOB ID: [id number] [employer]- All Rights Reserved Reading location - IP/workstation name: [email or web address]
[2018-02-18 13:32] VITALS: BP 187/85
== END 2018-02-18 12:40 | disposition home or self-care (01) ==
LOC: CCL 07:42
PROVIDERS: ATTEND Surgery
DX: T82.858A Stenosis of other vascular prosthetic devices, implants and grafts, initial encounter (principal); Y83.2 Surgical operation with anastomosis, bypass or graft as the cause of abnormal reaction of the patient, or of later complication, without mention of misadventure at the time of the procedure; I13.2 Hypertensive heart and chronic kidney disease with heart failure and with stage 5 chronic kidney disease, or end stage renal disease; I50.9 Heart failure, unspecified; N18.6 End stage renal disease; Z99.2 Dependence on renal dialysis; I48.91 Unspecified atrial fibrillation; I25.10 Atherosclerotic heart disease of native coronary artery without angina pectoris; J45.909 Unspecified asthma, uncomplicated; M19.90 Unspecified osteoarthritis, unspecified site; A15.9 Respiratory tuberculosis unspecified; D64.9 Anemia, unspecified; Z86.73 Personal history of transient ischemic attack (TIA), and cerebral infarction without residual deficits; I25.2 Old myocardial infarction; Z79.82 Long term (current) use of aspirin; Z79.899 Other long term (current) drug therapy; Z86.79 Personal history of other diseases of the circulatory system
CPT/HCPCS: 36415; 85027; 80048; 36902; C1752; C1725; C1887; Q9967; J2250; J1644 ×2; A9270; J3010; J3490

== ENCOUNTER 2018-07-04 16:36 | Emergency (ER) | payer MEDICARE, BC ==
[2018-07-04 17:22] VITALS: BP 178/75
== END 2018-07-04 18:00 | disposition left against medical advice (07) ==
LOC: ER 16:36
DX: Z53.21 Procedure and treatment not carried out due to patient leaving prior to being seen by health care provider (principal)

== ENCOUNTER → 2018-11-06 | Outpatient (CLI) | payer MEDICARE, BC ==
--- NOTE | 2018-11-06 14:00 | WOMENS IMAGING REPORT ---
EXAM DESCRIPTION: BILAT SCREENING MAMMO W/CAD COMPLETED DATE/TIME: 11/06/2018 1:27 pm REASON FOR STUDY: Z12.31 SCREENING MAMMO Z12.31 ENCNTR SCREEN MAMMOGRAM FOR MALIGNANT NEOPLASM OF B RE COMPARISON: 09/10/2017 EXAM PARAMETERS: Standard craniocaudal and mediolateral oblique views of each breast recorded using digital acquisition. Read with the assistance of CAD. .[facility] [employer] Version 9.2 LIMITATIONS: None. FINDINGS: Findings present which are benign by mammographic criteria. No suspicious masses, calcifi cations or architectural distortion. Pertinent benign findings: Benign bilateral breast parenchymal calcifications. Benign mammographic findings may include one or more of the following: Smooth masses, popcorn/rim/co arse calcifications, asymmetries, post-procedure changes, and lesions with long-standing stability. IMPRESSION: BENIGN MAMMOGRAPHIC FINDINGS. BIRADS 2 BREAST DENSITY: b. There are scattered areas of fibroglandular density. BIRAD: ASSESSMENT: 2 BENIGN FINDING(S) RECOMMENDATION: ROUTINE SCREENING COMMENT: The patient has been notified of the results by letter per SA requirements. Additional no tification policies are in place for contacting patient with suspicious or incomplete findings. Quality ID #[id number]: The [employer] recommends an annual screening mammogram for women aged 40 years or over. This facility utilizes a reminder system to ensure that all patients receive reminder letters, and/or direct phone calls for appointments. This includes reminders for routine scr eening mammograms, diagnostic mammograms, or other Breast Imaging Interventions when appropriate. Th is patient will be placed in the appropriate reminder system. TECHNICAL DOCUMENTATION: FINDING NUMBER: (1) ASSESSMENT: (1) JOB ID: [id number] [employer]- All Rights Reserved Reading location - IP/workstation name: [email or web address]
== END ==
LOC: WI 12:47
PROVIDERS: ATTEND Internal Medicine
DX: Z12.31 Encounter for screening mammogram for malignant neoplasm of breast (principal)
CPT/HCPCS: 77067